=== PATIENT | male | born 1955 | race Caucasian/White ===

== ENCOUNTER 2016-03-16 09:17 | Emergency (ER) | payer BC, OTHER ==
[~2016-03-16] VITALS: Ht 177.8 cm; Wt 103.4 kg
[~2016-03-16 09:17] MED LIST: AMBIEN10 MG PO; ASPIR-TRIN325 M1 PO; ASPIRIN325 MG PO; ATENOLOL25 MG PO; ATENOLOL50 MG PO; CRESTOR40 MG PO; ERGOCALCIF50000 UNIT PO; GLUCOPHAGE500 MG PO; IMDUR30 MG PO; ISOSORBIDE DINI30 MG PO; Imdur PO; LANSOPRAZOLE30 M1 PO; LANTUS (UNITS)1 UNIT; LANTUS 10100 UNITS/ SC; LANTUS 3 M100 UNITS1 SC; LEVOTHROID,S0.175 MG PO; LEVOTHROID175 MCG PO; LIPITOR20 MG PO; LISINOPRIL10 MG PO; METFORMIN HCL1000 MG PO; MULTIVITAMIN1 EAC1; NIASPAN,SLO-NI500 MG PO; NITROSTAT0.4 MG SL; NOVOLOG (UNITS1 UNIT; NOVOLOG 10100 UNITS/ SC; PAROXETINE HCL25 MG PO; PERCOCET 5/31 TABLET PO; PLAVIX75 MG PO; PRINIVIL10 MG PO; PROZAC40 MG PO; Plavix PO; RANEXA500 MG PO; STOOL SOFTENER240 MG PO; SYNTHROID175 MCG PO; THERAGRAN1 TABLET PO; TRICOR145 MG PO; TYLENOL REGULA325 MG PO; VITAMIN D31000 UNIT PO; VITAMIN D50000 UNI2; ZESTRIL,PRINIVI10 MG
[2016-03-16 09:18] VITALS: BP 153/84
== END 2016-03-16 10:53 | disposition home or self-care (01) ==
LOC: EME 09:17
PROC: 2W2RX4Z Dressing of Left Lower Leg using Bandage (ICD-10-PCS; principal; 2016-03-16)
DX: T24.232A Burn of second degree of left lower leg, initial encounter (principal); X08.8XXA Exposure to other specified smoke, fire and flames, initial encounter; I10 Essential (primary) hypertension; E78.5 Hyperlipidemia, unspecified; E11.9 Type 2 diabetes mellitus without complications; Z79.4 Long term (current) use of insulin; Z79.82 Long term (current) use of aspirin; Z79.02 Long term (current) use of antithrombotics/antiplatelets; Z95.1 Presence of aortocoronary bypass graft; Z95.5 Presence of coronary angioplasty implant and graft
CPT/HCPCS: 99281; 99284

== ENCOUNTER 2016-11-26 12:45 | Observation (INO) | payer BC, OTHER ==
[~2016-11-26] VITALS: Ht 177.8 cm; Wt 98.5 kg
[2016-11-26 13:53] LABS: BASOPHIL COUNT 0.1 K/uL (0-0.1); EOSINOPHIL (%) 1.1 % (0-5); EOSINOPHIL COUNT 0.1 K/uL (0-0.3); HEMATOCRIT 36.8 % (38.0-50.0); IMMATURE GRANULOCYTE (%) 0.2 % (0.0-0.7); INSTRUMENT ABS NEUTROPHIL CT 8.6 K/uL; LYMPHOCYTE COUNT 2.2 K/uL (1.0-2.8); MCH 28.9 PG (29.0-34.0); MCHC 32.1 G/DL (30.0-36.0); MEAN PLAT.VOLUME 11.4 uM^3 (9.0-12.4); MONOCYTE COUNT 1.1 K/uL (0-0.8); NEUTROPHIL (%) 71.1 % (45-76); NEUTROPHIL COUNT 8.6 K/uL (1.8-6.4); PLATELET COUNT 228 K/uL (156-360); RBC DIS.WIDTH-CV 15.5 % (11.8-14.6); RBC DIS.WIDTH-SD 51.1 % (39-53); RED BLOOD COUNT 4.09 M/uL (4.00-5.50); WHITE BLOOD COUNT 12.1 K/uL (4.1-10.2)
[2016-11-26 14:06] LABS: CHLORIDE 109 mEq/L (99-109); POTASSIUM 4.4 mEq/L (3.7-5.4); SODIUM 142 mEq/L (136-147)
[2016-11-26 14:08] LABS: GLUCOSE 98 mg/dL (70-99)
[2016-11-26 14:09] LABS: ANION GAP 12 MEQ/L (2-14)
[2016-11-26 14:11] LABS: GFR ESTIMATE (CALCULATED) > 59 mL/min/
[2016-11-26 14:12] LABS: UREA NITROGEN (BUN) 25 mg/dL (9-23)
[2016-11-26 14:17] LABS: TROP-I INTERPRETATION NEGATIVE; TROPONIN-I 0.02 ng/mL (0.0-0.30)
[2016-11-26] MEDS ORDERED: IMDUR60 MG PO (17:16)
[2016-11-26] MEDS ORDERED: ASPIR 8181 M1 PO (17:18)
[2016-11-26] MEDS ORDERED: CRESTOR5 MG PO (17:21)
[2016-11-26 19:49] VITALS: BP 183/87
[2016-11-26 20:56] LABS: TROP-I INTERPRETATION NEGATIVE; TROPONIN-I 0.04 ng/mL (0.0-0.30)
[2016-11-26 22:12] LABS: POINT-OF-CARE METER ID UU13113700
[2016-11-27 00:16] VITALS: BP 132/73
[2016-11-27 02:08] LABS: TROP-I INTERPRETATION NEGATIVE; TROPONIN-I 0.03 ng/mL (0.0-0.30)
[2016-11-27 02:37] LABS: POINT-OF-CARE METER ID UU13113831
[2016-11-27 02:59] VITALS: BP 132/68
[2016-11-27 09:22] VITALS: BP 159/74
[2016-11-27 09:28] LABS: POINT-OF-CARE METER ID UU13113831
[2016-11-27 11:39] VITALS: BP 125/62
[2016-11-27 12:26] LABS: POINT-OF-CARE METER ID UU13113831
[2016-11-27 16:01] VITALS: BP 138/76
[2016-11-27] MEDS ORDERED: NORVASC5 MG PO (18:56)
== END 2016-11-27 19:09 | disposition home or self-care (01) ==
LOC: EME 12:45 → EDOF 16:11 → ENRESERV 16:12 → 5WEST 19:06 → CANRESERV 11-27 14:22 → ENRESERV 11-27 14:22 → 5WEST 11-27 14:39
PROVIDERS: Emergency Medicine; Internal Medicine; Student in an Organized Health Care Education/Training Program
DX: I25.810 Atherosclerosis of coronary artery bypass graft(s) without angina pectoris (principal); I10 Essential (primary) hypertension; E11.9 Type 2 diabetes mellitus without complications; D72.829 Elevated white blood cell count, unspecified; Z85.51 Personal history of malignant neoplasm of bladder; Z85.71 Personal history of Hodgkin lymphoma; R07.9 Chest pain, unspecified; E78.5 Hyperlipidemia, unspecified; Z91.19 Patient's noncompliance with other medical treatment and regimen; I42.9 Cardiomyopathy, unspecified; I35.0 Nonrheumatic aortic (valve) stenosis; D68.9 Coagulation defect, unspecified; Z95.1 Presence of aortocoronary bypass graft; Z79.4 Long term (current) use of insulin; Z79.82 Long term (current) use of aspirin; D64.9 Anemia, unspecified; G89.29 Other chronic pain; E03.9 Hypothyroidism, unspecified; F32.9 Major depressive disorder, single episode, unspecified; Z82.0 Family history of epilepsy and other diseases of the nervous system; Z82.49 Family history of ischemic heart disease and other diseases of the circulatory system
CPT/HCPCS: 71010; 78582; 80048; 82948; 84484; 85025; 85379; 93005; 99281; 99285; A9540; A9567; G0378; J1650

== ENCOUNTER 2017-06-09 07:35 | Emergency (ER) | payer BC, OTHER ==
[~2017-06-09] VITALS: Ht 177.8 cm; Wt 95.3 kg
[~2017-06-09 07:35] MED LIST changes: +ASPIR 8181 M1 PO; +CRESTOR5 MG PO; +IMDUR60 MG PO; +NORVASC5 MG PO
[2017-06-09 10:50] VITALS: BP 156/61
== END 2017-06-09 10:20 | disposition home or self-care (01) ==
LOC: EME 07:35
PROC: 0HQ1XZZ Repair Face Skin, External Approach (ICD-10-PCS; principal; 2017-06-09)
DX: S01.112A Laceration without foreign body of left eyelid and periocular area, initial encounter (principal); S00.03XA Contusion of scalp, initial encounter; W19.XXXA Unspecified fall, initial encounter; Y92.008 Other place in unspecified non-institutional (private) residence as the place of occurrence of the external cause; Z79.02 Long term (current) use of antithrombotics/antiplatelets; Z79.82 Long term (current) use of aspirin; I25.10 Atherosclerotic heart disease of native coronary artery without angina pectoris; F32.9 Major depressive disorder, single episode, unspecified; E11.9 Type 2 diabetes mellitus without complications; Z79.4 Long term (current) use of insulin; I25.2 Old myocardial infarction; I10 Essential (primary) hypertension; E78.5 Hyperlipidemia, unspecified; Z95.1 Presence of aortocoronary bypass graft; Z85.51 Personal history of malignant neoplasm of bladder; E05.90 Thyrotoxicosis, unspecified without thyrotoxic crisis or storm; Z95.2 Presence of prosthetic heart valve
CPT/HCPCS: 70450; 70486; 99281; 99284